=== PATIENT | female | born 1970 | race Hispanic/Latino ===

== ENCOUNTER 2018-03-29 11:19 | Emergency (ER) | payer OTHER ==
[~2018-03-29] VITALS: Ht 162.6 cm; Wt 56.7 kg
--- NOTE | 2018-03-29 11:37 | ED PSYCHIATRIC COMPLAINT ---
See Addendum History of Present Illness General Chief Complaint: Psychiatric Related Complaint Stated Complaint: BIBA, "FEELS UNSAFE" Source: patient, old records, EMS Exam Limitations: no limitations Triage Nurses Notes Reviewed? yes HPI: Patient sent over from outpatient psychiatry for evaluation. Patient has been off her medications for the past few weeks. Patient states that she feels unsafe. Patient does have a history of cutting but states that she has not cut since September. Patient denies any suicidal ideations at this time however she is scared of what she might do. Patient denies any homicidal ideations. She denies any hallucinations. (Rohith GOMEZ,Gumaro Gambino) Vital Signs & Intake/Output Vital Signs & Intake/Output Vital Signs Date Time Temp Pulse Resp B/P B/P Pulse O2 O2 Flow FiO2 Mean Ox Delivery Rate 03/31 1605 97.8 81 18 111/73 99 03/31 1242 98.3 76 16 109/62 98 Room Air 03/31 1045 99.2 82 18 102/52 98 Room Air Room Air 03/31 0657 98.2 71 18 101/59 100 Room Air 03/31 0341 98.5 81 18 110/60 98 Room Air 03/30 2206 98.6 68 17 112/64 97 Room Air 03/30 1845 98.2 72 16 100/62 98 Allergies Coded Allergies: No Known Allergies (03/29/18) Reconcile Medications Aripiprazole (Abilify) 15 MG TABLET 1 TAB PO DAILY MENTAL HEALTH (Reported) Clonidine HCl 0.1 MG TABLET 1 TAB PO QPM MENTAL HEALTH (Reported) Divalproex Sodium (Depakote ER) 500 MG TAB.ER.24H 2 TAB PO DAILY MENTAL HEALTH (Reported) Fluoxetine HCl (Prozac) 20 MG CAPSULE 3 CAP PO QAM MENTAL HEALTH (Reported) Folic Acid 1 MG TABLET 1 TAB PO DAILY VITAMIN SUPPORT (Reported) Mirtazapine (Remeron) 15 MG TABLET 1 TAB PO QPM MENTAL HEALTH (Reported) (Ulises Villatoro DO) Past History Travel History Traveled to [place] past 21 day No Medical History Any Pertinent Medical History? see below for history Psychiatric: depression Surgical History Surgical History: non-contributory Psychosocial History Tobacco Use: Never used ETOH Use: denies use Illicit Drug Use: marijuana Family History Hx Contributory? No (Rohith GOMEZGumaro) Review of Systems Review of Systems Constitutional: Reports: no symptoms. EENTM: Reports: no symptoms. Respiratory: Reports: no symptoms. Cardiovascular: Reports: no symptoms. GI: Reports: no symptoms. Genitourinary: Reports: no symptoms. Musculoskeletal: Reports: no symptoms. Skin: Reports: no symptoms. Neurological/Psychological: Reports: see HPI. Hematologic/Endocrine: Reports: no symptoms. Immunologic/Allergic: Reports: no symptoms. All Other Systems: Reviewed and Negative (Gumaro Newberry MD) Physical Exam Physical Exam General Appearance: well developed/nourished, mild distress Head: atraumatic Eyes: Bilateral: PERRL, EOMI. Ears, Nose, Throat: normal pharynx, normal ENT inspection, hearing grossly normal Neck: normal inspection, supple Respiratory: normal breath sounds Cardiovascular: regular rate/rhythm Gastrointestinal: soft, non-tender Extremities: normal range of motion Neurological/Psychiatric: no motor/sensory deficits, awake, agitated, alert, oriented x 3 Appearance/Memory/Insight: appropriate appearance, appropriate insight Behavoir/Eye Contact/Speech: cooperative, normal speech, good eye contact Thoughts/Hallucinations: normal thought pattern, no apparent hallucination Skin: intact, normal color, warm/dry SAD PERSONS Done? CRISIS CONSULT OBTAINED (Gumaro Newberry MD) Progress Differential Diagnosis: drug intoxication, drug overdose, drug withdrawal, electrolyte abnormality Hand-Off Endorsed To: Ulises Villatoro DO Endorsed Time: 1899 Pending: consult (Gumaro Newberry MD) Plan of Care: Current Medications Sig/Perla Start time Last Medication Dose Stop Time Status Admin Mirtazapine 15 MG DAILY 03/31 1354 UNVr 03/31 (Remeron) 1508 Divalproex Sodium 500 MG DAILY 03/29 2022 UNVr 03/31 (Depakote ER) 0942 Aripiprazole 5 MG DAILY 03/29 2021 UNVr 03/31 (Abilify) 0942 Acetaminophen 325 MG Q6P PRN 03/29 2015 AC 03/29 (Tylenol) 2047 (Ulises Villatoro DO) Departure Departure Condition: Stable Referrals: Unknown (PCP/Family) Departure Forms: Customer Survey General Discharge Information (Gumaro Newberry MD) Departure Disposition: STILL A PATIENT Clinical Impression Primary Impression: Paranoid Comments 03/29/18 8:13 PM Patient was signed out to me by Dr. Newberry. She is for crisis evaluation. (Ulises Villatoro DO) Laboratory Tests 03/29/18 1207: Anion Gap 6, Estimated GFR > 60, BUN/Creatinine Ratio 13.8, Glucose 98, Calcium 9.2, Total Bilirubin 0.4, AST 15, ALT 26, Alkaline Phosphatase 58, Total Protein 6.7, Albumin 4.1, Globulin 2.6, Albumin/Globulin Ratio 1.6, Total Beta HCG NEGATIVE, CBC w Diff NO MAN DIFF REQ, RBC 4.26, MCV 95.9, MCH 32.7 H, MCHC 34.2 , RDW 12.8, MPV 9.2, Gran % 65.0, Lymphocytes % 25.6, Monocytes % 7.1, Eosinophils % 1.5, Basophils % 0.8, Absolute Granulocytes 6.7 H, Absolute Lymphocytes 2.6, Absolute Monocytes 0.7 H, Absolute Eosinophils 0.2, Absolute Basophils 0.1, Serum Alcohol < 10.0 03/29/18 1140: Urine Opiates Screen < 100, Methadone Screen < 40, Barbiturate Screen < 60, Ur Phencyclidine Scrn < 6.00, Amphetamines Screen < 100, U Benzodiazepines Scrn < 85, Urine Cocaine Screen < 50, Urine Cannabis Screen > 80.00 H (Rohith GOMEZ,Gumaro Gambino) Departure Departure Condition: Stable Referrals: Unknown (PCP/Family) Departure Forms: Customer Survey General Discharge Information (Rohith GOMEZ,Gumaro Gambino) Departure Disposition: STILL A PATIENT Clinical Impression Primary Impression: Paranoid Comments 03/29/18 8:13 PM Patient was signed out to me by Dr. Newberry. She is for crisis evaluation. (Ulises Villatoro DO)
[2018-03-29] MEDS ORDERED: DEPAKOTE ER500 M1 PO (11:52)
[2018-03-29] MEDS ORDERED: ABILIFY15 M1 PO (11:53)
[2018-03-29] MEDS ORDERED: PROZAC20 M2 PO (11:53)
[2018-03-29] MEDS ORDERED: CLONIDINE HCL0.1 MG PO (11:54)
[2018-03-29] MEDS ORDERED: REMERON15 M2 PO (11:54)
[2018-03-29] MEDS ORDERED: FOLIC ACID1 M1 PO (11:55)
[2018-03-29 12:15] LABS: ABSOLUTE BASOPHIL COUNT 0.1 /CUMM (0.0-0.2); ABSOLUTE EOSINOPHIL COUNT 0.2 /CUMM (0.0-0.7); ABSOLUTE GRANULOCYTE CT 6.7 /CUMM (1.4-6.5); ABSOLUTE LYMPH COUNT 2.6 /CUMM (1.2-3.4); ABSOLUTE MONOCYTE COUNT 0.7 /CUMM (0.10-0.60); BASOPHIL % 0.8 % (0.0-2.0); EOSINOPHIL % 1.5 % (0-5); HEMATOCRIT 40.8 % (37-47); MEAN CORPUSCULAR HGB 32.7 PG (27.0-31.0); MEAN CORPUSCULAR HGB CONC 34.2 G/DL (33.0-37.0); MEAN CORPUSCULAR VOLUME 95.9 FL (81.0-99.0); MEAN PLATELET VOLUME 9.2 FL (7.4-10.4); PLATELET COUNT 214 /CUMM (130-400); RBC DISTRIBUTION WIDTH 12.8 % (11.5-14.5); RED BLOOD CELL CT 4.26 /CUMM (4.20-5.40); WHITE BLOOD CELL COUNT 10.3 /CUMM (4.8-10.8)
--- NOTE | 2018-03-29 20:13 | ED PSYCH CRISIS CONSULTATION ---
See Addendum Crisis Consult Basic Assessment Date of Consult: 03/29/18 Responsible Person/Accompanied By: Self Insurance Authorization: Insurance #1: Insurance name: ELZBIETA Bautista C&A Phone number: Policy number: [id number] Group number: Authorization number: ED Provider: Patient's ED Provider: Gumaro Newberry MD Primary Care Physician: Patient's PCP: Unknown PCP's Phone Number: Current Psychiatrist: N/A Chief Complaint: Psychiatric Related Complaint Patient's Quote: "I have been on and off my meds for the past year." Present Illness: The patient is a 47 year old single female BIBA to the ED by ambulance on a TRUCKING MANAGER paper from [facility] with a complaint of "not feeling safe" and SI with plan. Patient presented as alert, depressed, hopeless, helpless and orientated x3 with labile mood. the patient reports SI with a plan to kill herself by hanging. "I am thinking of killing myself recently by hanging myself." The patient reports a history of a prior suicide attempt by standing on railroad tracks. The patient reports depression of 10 and anxiety of 10 on a scale of 0 to 10, 10 being most severe. She reports decreased appetite ("I lost 60 ponds because I cannot eat. I feel nauseous from anxiety all the time."). She reports interrupted sleep "not good" endorsing racing thoughts that keep her awake. She reports decreased energy/motivation stating she is depressed. She states that she has Bipolar I disorder and has manic episodes where she "cannot think straight" and forgets to take her medication. She states she has been prescribed Depakote, Prozac, Abilify and Remeron and needs a visiting nurse to help with medication compliance. She reports being off her medication after moving from [place] to [place] and not being able to secure a new prescriber and visiting nurse. She states she was taking steps to secure a mental health case manager by going to [facility] today. The patient reports tactile and command auditory "go ahead and do it." She denies visual hallucinations. She reports feeling paranoid when she walks down the street feeling like she is being followed and starts sweating and getting nervous. The patient identifies her stressor as not having the resources to help her sustain her mental health and living with her son who is also mentally ill. "I just cannot live with people. I like to live alone and on a schedule." The patient reports having issues with anger, which she states when her anger escalates results in her blacking out and doing things she regrets including being incarcerated for two years for holding people hostage. the patient reports being treated from 2003 in [place] (inpatient, IOP and outpatient). She states that when she moved to [place] she was not able to secure the resources she had in [place] and decompensated. The patient is agreeable to a voluntary inpatient admission. Completed C-SSRS. Risk factors: Actual SA (lifetime), Self-Injury Behavior w/o SI, SI with specific plan, loss of medical resources, previous psychiatric diagnoses and treatments, not receiving treatment, hopelessness, helplessness, major depressive episode, mixed affective episode, highly impulsive behavior, substance abuse or dependence, agitation or severe anxiety; Protective factors: identifies reasons for living Patient's Address: [address] [place] [address] Other Phone Number: Who Do You Live With? Son Family/Informants Interviewed: cannot be obtained due to (Phone# of brother invalid) Allergies - Coded Allergies: No Known Allergies (03/29/18) Current Medications - Scheduled Medications Aripiprazole (Abilify) 15 MG TABLET 1 TAB PO DAILY MENTAL HEALTH (Reported) Entered as Reported by Iban Bahena on 03/29/18 1153 Clonidine HCl 0.1 MG TABLET 1 TAB PO QPM MENTAL HEALTH (Reported) Entered as Reported by Iban Bahena on 03/29/18 1154 Divalproex Sodium (Depakote ER) 500 MG TAB.ER.24H 2 TAB PO DAILY MENTAL HEALTH (Reported) Entered as Reported by Iban Bahena on 03/29/18 1152 Fluoxetine HCl (Prozac) 20 MG CAPSULE 3 CAP PO QAM MENTAL HEALTH (Reported) Entered as Reported by Iban Bahena on 03/29/18 1153 Folic Acid 1 MG TABLET 1 TAB PO DAILY VITAMIN SUPPORT (Reported) Entered as Reported by Iban Bahena on 03/29/18 1155 Mirtazapine (Remeron) 15 MG TABLET 1 TAB PO QPM MENTAL HEALTH (Reported) Entered as Reported by Iban Bahena on 03/29/18 1154 Laboratory Results: Laboratory Tests 03/29/18 1207: Anion Gap 6, Estimated GFR > 60, BUN/Creatinine Ratio 13.8, Glucose 98, Calcium 9.2, Total Bilirubin 0.4, AST 15, ALT 26, Alkaline Phosphatase 58, Total Protein 6.7, Albumin 4.1, Globulin 2.6, Albumin/Globulin Ratio 1.6, Total Beta HCG NEGATIVE, CBC w Diff NO MAN DIFF REQ, RBC 4.26, MCV 95.9, MCH 32.7 H, MCHC 34.2 , RDW 12.8, MPV 9.2, Gran % 65.0, Lymphocytes % 25.6, Monocytes % 7.1, Eosinophils % 1.5, Basophils % 0.8, Absolute Granulocytes 6.7 H, Absolute Lymphocytes 2.6, Absolute Monocytes 0.7 H, Absolute Eosinophils 0.2, Absolute Basophils 0.1, Serum Alcohol < 10.0 03/29/18 1140: Urine Opiates Screen < 100, Methadone Screen < 40, Barbiturate Screen < 60, Ur Phencyclidine Scrn < 6.00, Amphetamines Screen < 100, U Benzodiazepines Scrn < 85, Urine Cocaine Screen < 50, Urine Cannabis Screen > 80.00 H ([facility]) Addendum Note Addendum Pt was reevaluated by the top taper machine and psychiatrist Dr. Palumbo. Pt continues to endorse suicidal thoughts and plan to hang herself. "I'm on the edge, I'm aggravated and I'm all over the place". Pt reports she is having difficulty sleeping and she is experience nightmares. As well she reporting tactile symptoms "I feel something crawling on my skin and reference her right arm". "I get like this when I'm not in treatment". Pt was alert and oriented. Pt hyperverbal, very anxious with worried thoughts " I have really bad memory I almost burn my house down". Pt shared that he wants tretment because she has lost about 50 lbs and she is experiencing increasing symptoms of depression and anxiety. Pt reports she takes the following medications. Prozac, Abilify, Depakote, Remeron and Klonopin PRN. Pt states that her home life with her children in [place] is not helpful for; she moved from [place] to [place] to get away from them and they followed her to [place]. Pt want to be admitted for inpatient treatment. Disposition: Bed Search (Fern TRUCKING MANAGER,Castillo) Addendum 03/31/18, 7:30PM Pt seen by Crisis on evening shift for re-eval. Pt. complained of having to be in hallway while another pt. who came in after her was given a room in . Pt. said that if she does not have a room, then she wants to go hoime. Pt was angry and asked to talk to nurse. Pt. was told that she was not able to be discharged as the psychiatrist had said that she needed inpatient admission. Pt. settled down and was eventually given a room. Pt. offered no other complaints. (Eder GAYLE,Marcia) Past History Past Medical History Neurological: NONE EENT: NONE Cardiovascular: NONE Respiratory: NONE Gastrointestinal: NONE Hepatic: NONE Renal: NONE Musculoskeletal: NONE Psychiatric: anxiety, depression Endocrine: NONE Past Surgical History Surgical History: non-contributory Psychosocial History Strengths/Capabilities: Patient is motivated for treatment. Physical Limitations (Interventions): None noted Psychiatric Treatment History Psych Treatment Psychiatric Treatment Yes Inpatient Treatment Yes Outpatient Treatment Yes Location of Treatment [facility] Inpatient, IOP & Outpatient Reason for Treatment Bipolar I Dates of Treatment [phone] Response to Treatment Patient has been unable to be treated by [facility] due to transporation and no visiting nurse service resulting in decompenastion from not complying with medication. Diagnosis by History: Bipolar I Substance Use/Abuse History Drug Use/Abuse Substances Used/Abused Yes Substance Used/Abused Marijuana First Use 15 years old Last Used Yesterday How much used/taken 1 to 3 joints How often Daily For how long Since age 15 Route of use Inhale Substance Abuse Treatment Substance Abuse Treatment Past Substance Abuse [place] No Comments: None (Wong RAMÍREZ,Ingrid) Current Mental Status Mental Status Orientation: Person, Place, Situation Affect: Anxious, Depressed, Hopeless, Labile, Sad Speech: WNL Neuro-vegetative: Appetite Decreased, Concentration Poor, Energy Decreased, Helpless, Sleep Disturbance Appearance Appearance- Dress/Hygiene: Patient was dressed in hospital scrubs, hygienic and wrapped in her blanket to stay warm during session. Behaviors Thought Process: Tangential Thought Content: Auditory Hallucinations, Delusions, Paranoid, Tactile Hallucinations Memory: WNL Insight: Poor SI/HI Risk Assessment Past Suicidal Ideation/Attempts Yes Current Suicidal Ideation/Att Yes Past Homicidal Ideation/Att: Yes Current Homicidal Ideation/Attempts No Degree of Intent: Plan, States Intent Danger To: Self Gravely Disabled: Poor Impulse Control Risk Factors: high anxiety/distress, history of Violence, history of suicide atmpts, SA/MH hospitalized, substance abuse, isolate/no social support, poor impulse control, limited support Lethality Ratin PTSD Checklist PTSD Done? patient declined ED Management Sitter: Yes Restraints: No ([facility] DSM5/PS Stressors/Medical Prob Diagnosis' (DSM 5, Stressors, Medical): F31.5 Bipolar I Disorder, MRE Depressed, with Psychotic Features F12.20 Cannabis Use Disorder, Severe Stressors: primary support, lack of medical resources Medical: None Current GAF: 25 Comments: None ([facility]) Departure Disposition Psych Medical Clearance Date: 03/29/18 Medically Cleared at: 1150 Time Started: 1834 Time Ended: 1909 Psychiatrist Consulted: Angélica Palumbo MD Date Disposition Established: 03/29/18 Time Disposition Established: 1914 Plan for Disposition - Modality: Bed Search Rationale for Disposition: Patient presents with unstable mood and SI with plan to hang herself. Patient reports auditory command hallucinations and paranoid delusions. Dr. Palumbo agrees the patient is not safe to discharge as she is suicidal and gravely disabled requiring inpatient admission. A bed search will be conducted. Type of IP Admission: Voluntary Additional Instructions: None Referrals Unknown (PCP/Family) ([facility]) Addendum Addendum 04/01/18: Crisis re-evaluated patient. She initially asked if her bed was ready downstairs. Pt was re-directed by clinical research nurse to re-cap the events that led up to her coming to the ED and how she was feeling while in the ED and today. Pt reports she has not been sleeping- sleeps 2-3 hours per day and does not nap in the day. Pt states she was a [facility] patient at [facility]- inpatient and IOP. Pt states she relocating from [place] to [place] a year ago and has not "resources" for almost 1 year. Pt defines "resources" as IOP, medication and visiting nurses. Pt states she to Care for an intake. When asked why she went to Care not [facility] in [place], she stated she wanted services fast and used her brother's Saline's address to get into Care. We discussed how she needs to use the [facility] in her community and how to recieve visiting nursing services she need to be honest about her address. Pt understood and is agreeable. Pt denies SI/HI/AH/VH. Pt denies tactile hallucinations as well. Pt was sititng up, talking on the phone and watching tv upon entering her room. Pt states she feels safe. Pt states she would feel safe outside the [facility] of the hospital as well. Pt stresses that she needs to be in treatment because she doesn't want to go back to [place]. When asked what she was incarcerated for, she states she held [facility] hostage. Pt is worried that if she does not have her resources she will get anxious again and doesn't want anything like what happened in [place] to happen again. Crisis called [facility], [phone], Acute Services. They do not make appointments. They have walk in hours Sunday through Sunday from 10am to 4pm. Crisis called [facility] for visiting nursing services. They believe pt is an appropriate referral however she needs a prescribed to write orders so this service will need to wait until she is an established client at [facility]. Crisis consulted with Dr. Siena Wright, senior national account manager psychiatrist. She is in agreement with the plan to have pt spend the night and discharge from the ED tomorrow for 10:00 a.m. at [facility]. Of note, followed up regarding guns in the home - pt denies guns in the home and/or access to them. Dr. Wright will see patient today as well. (Liliya GAYLE,Stephanie) Addendum Crisis contacted pt son Darshan Samuel [phone] and notified him of plan for pt's discharge. He was notified that pt has a walk in intake scheduled tomorrow morning at [facility] and has medications to picker / packer at her pharmacy in [place]. Darshan expressed understanding and agreement with the plan. Pt was scheduled with [facility] for discharge. (Denice GAYLE,Ricardo)
--- NOTE | 2018-03-30 20:55 | ED PSYCHIATRIST/APRN CONSULT ---
Psychiatrist/PRECISION OPTICS TECHNICIAN ED Consult Assessment and Plan: Case seen and discussed with Electrotyper Helper Briefly, Maria Antonia is a 47 Female. Dx Bipolar Dx. Here with worsening anxiety , depression and worsening SI with intent and plan to hang herself. MH treatment past few months has not been optimal after moving from [place] to [place] lost all wrap around services ( CM,VN) etc. has difficulties with med managment does not recall when she took meds. Also distressed about family issues. Prefers to live alone. Admits to intermittent AV and tactile? hallucinations. In ED past few hours has been in behvioral control. Cooperative with care. Plan Pt still endorsing SI with a plan to hang herself. requires IP level of care . Adjust Depakote to 750 mg HS Start Mirtazapine at 15 mg HS. Continue Abilify at 5 mg HS.
--- NOTE | 2018-03-31 18:01 | ED PSYCHIATRIST/APRN CONSULT ---
Psychiatrist/DRAWBENCH OPERATOR HELPER ED Consult Assessment and Plan: Maria Antonia was re-evaluated in with boom supervisor. 47 y/o LF BPAD. Here with SI with a plan to hang herself, mood lability. Poor sleep. today she seems better, brigther affect, less anxious. Denies any SI. No HI No percpetual disturbances. Main concern at this point is after care plan. Pt is at high risk of recurrence of symptoms w/o wrap around services. she has difficulties with medication management and transportation to appointments. [facility] today may have a bed. Awaiting for their answer. Plan Needs proper after care plan. VN services mainly. Continue Depakote at 750 mh HS Abilify may adjust to 10 mg QHS COntinue MIrtazapine at 15 mg HS.
[2018-04-01 17:49] VITALS: BP 101/67
--- NOTE | 2018-04-01 18:57 | ED PSYCHIATRIST/APRN CONSULT ---
Psychiatrist/PRICING MANAGER ED Consult Assessment and Plan: Chart and labs reviewed. Pt medically cleared by medical ED. Case discussed in detail with Crisis SW, concur with assessment and plan with the following additions since last eval. In brief, pt is 47 yo LF with bipolar d/o presenting on 03/29 with SI to hang self as reported to [facility] SW. Over the last 3 days, medications have been restarted (abilify and VPA), and pt has reconsitituted today to the point of being in good behavioral control, able to coherently engage in appropriate dispo planning, and denying SI/HI/AVH/SIB over the last 2 days. At this time, bed search has not yielded an admission, and pt is in agreement with plan to present to [facility] (just moved to [place]) Acute Services at 10 am tomorrow morning for intake and assignment to prescriber. Pt states she has medications waiting at pharmacy and her son or brother will be able to take her there this evening. Pt will stay with son dereck in [place] in their shared apartment. Also discussed that [facility] has [facility] that pt feels will be more comfortable since she is a savoonga Korean speaker. SW contacted [facility], was told pt will meet criteria for home services, but this should be initiated by [facility]/outpatient feedmobile driver. Pt in agreement with plan and is treatment seeking. Pt may be d/c home with brother/ son at this time with plan for [facility] at 10 am tomorrow. Pt advised to return to ED/call 911 with any worsening. Current Medications Sig/Perla Start time Last Medication Dose Route Stop Time Status Admin Acetaminophen 0 .STK-MED ONE 04/01 1046 DC PO Acetaminophen 325 MG Q6P PRN 03/29 2015 DCD 04/01 PO 1049 Aripiprazole 5 MG DAILY 03/29 2021 DCDr 04/01 PO 0915 Divalproex Sodium 500 MG DAILY 03/29 2022 DCDr 04/01 PO 0915 Mirtazapine 15 MG DAILY 03/31 1354 DCDr 04/01 PO 0915 Vital Signs Date Time Temp Pulse Resp B/P B/P Pulse O2 O2 Flow FiO2 Mean Ox Delivery Rate 04/01 1749 97.7 80 16 101/67 99 Room Air 04/01 1704 98.2 79 18 108/64 100 Room Air 04/01 1421 98.0 85 20 94/60 97 Room Air 04/01 1301 98.1 78 18 100/94 98 Room Air 04/01 1043 97.8 84 18 98/58 97 Room Air 04/01 0800 98.0 80 20 102/62 98 Room Air 04/01 0639 98.4 69 18 107/70 97 Room Air 04/01 0210 97.7 76 18 100/50 100 Room Air 04/01 0019 97.8 76 18 98/54 98 Room Air 03/31 2033 97.9 78 18 128/73 99 Room Air MSE: GEN: A&0 x3, well-groomed, in hospital ED room, talking on phone, no acute distress SPEECH: moderate rate and volume, nml prosody, Monegasque fluent MOTOR: no tics, tremors, sterotypy or other abnormal movements MOOD: "so much better today" AFFECT: a bit frustrated about being in hospital, but generally calm, conversational, nonlabile, good range, well-related TP: generally logical, linear and goal-related TC: denies SI/HI/AVH/SIB, no evidence of paranoia, obsessions, delusions, ruminations, grandiosity COG: no apparent deficits in atttention, memory or cognition JUDGMENT: fair INSIGHT: fair
== END 2018-04-01 17:50 ==
LOC: ERH 11:19
PROVIDERS: Emergency Medicine
DX: F22 Delusional disorders (principal)
CPT/HCPCS: 80307; G0463; G0480